=== PATIENT | female | born 1970 | race Hispanic/Latino ===

== ENCOUNTER 2018-04-30 07:42 | Day surgery (SDC) | payer OTHER ==
[2018-04-29 14:59] VITALS: BP 134/74
[2018-04-29 15:20] LABS: BASOPHILS % (AUTO) 0.5 % (0.0-5.0); EOSINOPHILS % (AUTO) 2.8 % (0.0-8.0); HEMATOCRIT 37.9 % (36-48); LYMPHOCYTES % (AUTO) 24.5 % (21.0-51.0); MEAN CORPUSCULAR HEMOGLOBIN 29.9 pg (27.0-33.0); MEAN CORPUSCULAR HGB CONC 34.1 g/dL (32.0-36.0); MEAN CORPUSCULAR VOLUME 87.9 fL (79-99); MONOCYTES % (AUTO) 4.9 % (3.0-13.0); NEUTROPHILS % (AUTO) 67.3 % (40.0-77.0); PLATELET COUNT (AUTO) 338 K/uL (130-400); RED BLOOD CELL COUNT(AUTO) 4.31 MIL/uL (4.00-5.50); RED CELL DISTRIBUTION WIDTH 13.5 % (11.0-15.5); WHITE BLOOD COUNT (AUTO) 10.7 K/uL (4.8-10.8)
[2018-04-29 15:45] LABS: CREATININE 0.7 mg/dL (0.5-1.5); POTASSIUM 4.1 mmol/L (3.5-5.1)
[2018-04-30] VITALS (13 sets, daily range): BP systolic 116–144; BP diastolic 65–86
[~2018-04-30] VITALS: Ht 157.5 cm; Wt 90.7 kg
[~2018-04-30 07:42] MED LIST: LEVO50TA11 PO; METO25TA6 PO
[2018-04-30] MEDS ORDERED: LACTATED RINGERS 1000ML 1,000 ML IV ONE (08:45)
[2018-04-30] MEDS: CEFAZOLIN SODIUM 1 GM VIAL IVP SCH ×2 (08:58→10:42)
[2018-04-30] MEDS ORDERED: LIDOCAINE PF 2% 5ML ABBOJECT ONE (10:05)
[2018-04-30] MEDS ORDERED: MIDAZOLAM HCL 1 MG/ML 2ML VIAL ONE (10:05)
[2018-04-30] MEDS ORDERED: ONDANSETRON HCL 4 MG/2 ML VIAL ONE (10:05)
[2018-04-30] MEDS ORDERED: DEXAMETHASONE SOD PHOSPHATE 10MG/ML 1ML VIAL ONE (10:05)
[2018-04-30] MEDS ORDERED: SUCCINYLCHOLINE 200MG/10ML SYR ONE (10:05)
[2018-04-30] MEDS ORDERED: GLYCOPYRROLATE 1 MG/5 ML SYRINGE ONE (10:06)
[2018-04-30] MEDS ORDERED: NEOSTIGMINE 5MG/5ML SYR IV ONE (10:06)
[2018-04-30] MEDS ORDERED: PROPOFOL 10 MG/ML 20ML VIAL IV ONE (10:06)
[2018-04-30] MEDS ORDERED: FENTANYL CITRATE PF 50 MCG/1 ML 2ML VIAL ONE ×2 (10:06→12:39)
[2018-04-30] MEDS ORDERED: ROCURONIUM 10MG/1ML SYR 10 MG/ML ML ONE (10:06)
[2018-04-30] MEDS ORDERED: MEPERIDINE-PF 25 MG/ML SYG ONE ×2 (12:15→12:23)
[2018-04-30] MEDS ORDERED: TYL3 PO (12:21)
[2018-04-30] MEDS ORDERED: NAPR-1192 PO (12:21)
[2018-04-30] MEDS ORDERED: CEPH500B PO (12:21)
[2018-04-30] MEDS ORDERED: PROMETHAZINE HCL 25 MG/ML 1ML AMPULE IM ONE (12:23)
[2018-04-30] MEDS ORDERED: MELO-106 PO (14:04)
== END 2018-04-30 14:00 | disposition home or self-care (01) ==
LOC: DAH 07:42
PROVIDERS: ATTEND Orthopaedic Surgery
DX: M23.222 Derangement of posterior horn of medial meniscus due to old tear or injury, left knee (principal); M22.42 Chondromalacia patellae, left knee; I10 Essential (primary) hypertension; E03.9 Hypothyroidism, unspecified; Z82.49 Family history of ischemic heart disease and other diseases of the circulatory system; Z83.3 Family history of diabetes mellitus; Z68.36 Body mass index [BMI] 36.0-36.9, adult; Z98.890 Other specified postprocedural states; Z79.899 Other long term (current) drug therapy; Z88.8 Allergy status to other drugs, medicaments and biological substances; Z79.01 Long term (current) use of anticoagulants
CPT/HCPCS: 29881; 36415; 80048; 84702; 85025; A4215; A4606; A4649 ×4; A4930; A6223; J0330; J0690; J1100; J2001; J2175 ×2; J2250; J2405; J2550; J2704; J2710; J3010 ×2; J3490; J7120 ×2